=== PATIENT | female | born 1985 | race Caucasian/White ===

== ENCOUNTER 2021-12-06 19:24 | Inpatient (IN) | payer OTHER, SELFPAY ==
[2021-12-06] MEDS ORDERED: NS w/ Oxytocin 30 units 500 ML ONE (20:33)
[2021-12-06] MEDS ORDERED: Lidocaine 1% (PF) 30 ML VIAL ONE (20:34)
[2021-12-06 21:07] LABS: Hemoglobin 12.8 g/dL (12.0-15.5); Mean Corpuscular HGB CONC 34.6 g/dL (32.0-36.0); Mean Corpuscular Hemoglobin 30.8 pg (27.0-33.0); Mean Corpuscular Volume 89.2 fl (81.6-98.3); Platelet Count 229 10x3/uL (150-450); RBC Distribution Width 12.7 % (11.5-14.5); Red Blood Cell (RBC) Count 4.15 10x6/uL (3.90-5.03); White Blood Cell (WBC) Count 11.9 10x3/uL (3.5-10.5)
[2021-12-06] MEDS ORDERED: Methylergonovine 0.2 MG/ML VIAL IM PRN (21:35)
[2021-12-06] MEDS ORDERED: Lidocaine 1% (PF) 30 ML VIAL SC PRN (21:35)
[2021-12-06] MEDS ORDERED: Carboprost 250 MCG/ML AMP IM PRN (21:35)
[2021-12-06] MEDS ORDERED: Ibuprofen 800 MG TAB PO PRN (21:35)
[2021-12-06] MEDS ORDERED: Misoprostol 200 MCG TAB PR PRN (21:35)
[2021-12-06] MEDS ORDERED: HYDROcodone/Acetaminophen 5/325 mg Tablet PO PRN (21:35)
[2021-12-06] MEDS ORDERED: NS w/ Oxytocin 30 units 500 ML IV SCH (21:45)
[2021-12-06 22:23] LABS: HBSAg Index 0.23 S/CO (0-0.99); Hep B Surf Ag Non-Reactive S/CO (NonReactive)
[2021-12-06 22:24] LABS: Syphilis Antibody Nonreactive (Nonreactive); Syphilis Antibody Index 0.08 S/CO (<1.00 Non-Reactive)
[2021-12-07] MEDS ORDERED: HYDROcodone/Acetaminophen 5/325 mg Tablet PO PRN (00:44)
[2021-12-07] MEDS ORDERED: Preparation H Ointment 28 GM TUBE PR PRN (00:44)
[2021-12-07] MEDS ORDERED: Lanolin Ointment 7 GM TUBE TOP PRN (00:44)
[2021-12-07] MEDS ORDERED: hydrALAZINE 20 MG/ML VIAL SLOW IVP PRN (00:44)
[2021-12-07] MEDS ORDERED: Milk Of Magnesia 30 ML UDCUP PO PRN (00:44)
[2021-12-07] MEDS ORDERED: Bisacodyl 10 MG SUPP PR PRN (00:44)
[2021-12-07] MEDS ORDERED: Boostrix 0.5 ML (Tdap) VIAL (>/=7 yrs of age) IM ONE (00:44)
[2021-12-07] MEDS ORDERED: Benzocaine-Menthol 82.5 ML CAN TOP PRN (00:44)
[2021-12-07] MEDS: Ibuprofen 800 MG TAB PO SCH ×3 (01:05→15:38)
[2021-12-07] MEDS: Docusate 100 MG CAP PO SCH ×2 (08:05→21:13)
[2021-12-07] MEDS: Ferrous Sulfate 325 MG TAB PO SCH ×2 (08:05→09:45)
[2021-12-08] MEDS: Ibuprofen 800 MG TAB PO SCH ×2 (02:38→09:20)
[2021-12-08 08:09] VITALS: BP 100/59; TEMP 98.3
[2021-12-08] MEDS: Ferrous Sulfate 325 MG TAB PO SCH (09:19)
[2021-12-08] MEDS: Docusate 100 MG CAP PO SCH (09:20)
== END 2021-12-08 11:15 | disposition home or self-care (01) | DRG 807 ==
LOC: CSHLD/OP 19:24 → CSHLD 20:06 → CSHPP 12-07 00:31
PROVIDERS: ADMIT Family Medicine; ATTEND Family Medicine
PROC: 10E0XZZ Delivery of Products of Conception, External Approach (ICD-10-PCS; principal; 2021-12-06)
PROC: 0HQ9XZZ Repair Perineum Skin, External Approach (ICD-10-PCS; 2021-12-06)
PROC: 3E0334Z Introduction of Serum, Toxoid and Vaccine into Peripheral Vein, Percutaneous Approach (ICD-10-PCS; 2021-12-07)
DX: O42.02 Full-term premature rupture of membranes, onset of labor within 24 hours of rupture (principal); Z37.0 Single live birth; O26.893 Other specified pregnancy related conditions, third trimester; Z67.11 Type A blood, Rh negative; Z3A.38 38 weeks gestation of pregnancy; O69.81X0 Labor and delivery complicated by cord around neck, without compression, not applicable or unspecified; O70.0 First degree perineal laceration during delivery; Z20.822 Contact with and (suspected) exposure to COVID-19
CPT/HCPCS: 36415; 85027; 85461; 86780; 86850; 86870; 86900; 86901; 87340; 90384; 96372; 99285